=== PATIENT | male | born 2005 | race Caucasian/White ===

== ENCOUNTER 2025-02-20 23:56 | Emergency (ER) | payer MEDICAID ==
[~2025-02-20] VITALS: Ht 172.7 cm; Wt 74.1 kg
[2025-02-20 23:57] VITALS: BP 127/71; PULSE 60; O2SAT 98
[2025-02-21 00:44] LABS: MEAN PLATELET VOLUME 9.8 FL (7.4-10.4); RED CELL DISTRIBUTION WIDTH 13.2 % (11.5-14.5)
--- NOTE | 2025-02-21 01:00 | Physician Documentation ---
History of Present Illness ~ Chief Complaint: Suicidal Ideation Stated Complaint: MH Time Seen by MD: 00:20 Source: patient, EMS Mode of Arrival: EMS Exam Limitations: no limitations HPI Chief Complaint: Suicidal thoughts Caveat: None Independent Historians: None History of Present Illness: Patient is a 19-year-old man brought in by police and dropped off. Patient is having suicidal thoughts. Patient was on the phone with a friend when he was cutting his left arm. His friend called 911. Police brought him here. Patient is denying any suicidal plan. Patient denies any other associated symptoms. Review of systems: All systems were reviewed and are negative except for what is indicated in the history of present illness. Past Medical History: None Past Surgical History: None Social History: Denies tobacco use, denies alcohol use, denies drug use Medications: Reviewed as documented Nursing Notes Allergies: Reviewed as documented in Nursing Notes Medication Reconciliation Allergies: Coded Allergies: No Known Allergies (Unverified , 02/21/25) Review of Systems All Other Systems at this time: Reviewed and Negative ROS Patient denies any other acute symptoms other than above. All other systems are negative Physical Exam Vital Signs: RN Vital Signs have been reviewed: Yes, Temperature: 99.3, Source: Temporal, Heart Rate: 60, Respiratory Rate: 18, BP: 127/71, Pulse Oximetry: 98, Weight: 74.090 Oxygen Flow Rate: 0 Pulse Oximetry Reflects: adequate oxygenation Physical Exam General Appearance: No distress HEENT: Normal OP, moist oral mucosa, PERRL, EOMI Neck: supple, normal ROM, trachea midline Pulmonary: No respiratory distress, CTA, BS equal Cardiac: RRR, no murmur, rub or gallop, GI: nondistended, soft, nontender, normal bowel sounds, no guarding, no rebound Extremities: normal ROM, no swelling, non-tender, multiple superficial linear cuts or scratches to the left forearm. None of the lacerations or through the subcutaneous tissue. Skin: intact, dry, warm, no rashes must see extremity exam above Neuro: AAOx3, speech is clear, no focal motor weakness Psych: normal affect, good eye contact, no apparent hallucination, normal speech Progress Results/Orders Results/Orders Orders - ZACKARY DUMONT MD Urinalysis (02/21/25 00:20) Drug Screen, Urine (02/21/25 00:20) Ethanol (8/9/25 00:20) TSH (02/21/25 00:20) Med Rec (02/21/25 00:20) 1799.11 (02/21/25 00:20) BMP (02/21/25 00:20) Close Observation Level (02/21/25 00:20) Covid19 Binax Poc Result Entry (02/21/25 00:20) Regular Diet (02/21/25 Breakfast) Completed Orders - ZACKARY DUMONT MD Cbc/Diff (02/21/25 00:20) Vital Signs 02/20/25 23:57 Temp 99.3 Pulse 60 Resp 18 B/P (MAP) 127/71 Pulse Ox 98 O2 Flow Rate 0 Laboratory Tests Test 02/21/25 00:31 02/21/25 00:38 White Blood Count 9.2 Red Blood Count 5.20 Hemoglobin 15.8 Hematocrit 46.1 Mean Corpuscular Volume 88.8 Mean Corpuscular Hemoglobin 30.3 Mean Corpuscular Hemoglobin Concent 34.1 Red Cell Distribution Width 13.2 Platelet Count 242 Mean Platelet Volume 9.8 Neutrophils (%) (Auto) 79.2 H Lymphocytes (%) (Auto) 11.0 L Monocytes (%) (Auto) 8.9 Eosinophils (%) (Auto) 0.5 Basophils (%) (Auto) 0.4 Neutrophils # (Auto) 7.3 Lymphocytes # (Auto) 1.0 L Monocytes # (Auto) 0.8 Eosinophils # (Auto) 0.0 Basophils # (Auto) 0.0 CBC Comment Chemistry Comments Medical Decision Making Findings Differential diagnosis includes but is not limited to: Depression, anxiety, PTSD, schizoaffective disorder, substance abuse, Laboratory data independent interpretation: CBC: Unremarkable BMP: Unremarkable Toxicology: Blood alcohol 0, urine drug screen negative Serology: COVID negative Urinalysis: Unremarkable TSH: 0.9 Emergency department course/medical decision-making: Patient is brought in by police and the patient is self committing himself for evaluation. Patient will be placed on a 1799. Patient is medically cleared and stable for evaluation by [facility]. Care the patient transferred to Dr. Sierra at 6:00 a.m.. Consultation/communications: [facility] consultation pending. Disposition per [facility] Departure Time of Disposition: 01:00 Disposition: 30 STILL A PATIENT Impression: Primary Impression: Suicidal thoughts Additional Impression: Self-inflicted injury Condition: Stable Discharge Instructions: Medical Screening Exam, Suicidal Feelings: How to Help Yourself Education Educated: Patient Educated regarding: diagnosis, treatment Signature Scribe Signature: No scribe Attestation: No scribe ZACKARY DUMONT MD Feb 21, 2025 01:00
[2025-02-21 01:01] LABS: LEUKOCYTE ESTERASE ,URINE NEGATIVE (Neg); NITRITES, URINE NEGATIVE (Neg); OCCULT BLOOD,URINE NEGATIVE (Neg)
[2025-02-21 01:03] LABS: UA COLLECTION TYPE VOIDED
[2025-02-21 01:05] LABS: CREATININE 0.97 MG/DL (0.60-1.10); ETHANOL < 10 MG/DL (<10); TOTAL CARBON DIOXIDE 26.7 MMOL/L (24-32); eCRCL 119 ML/MIN; eGFR > 90 ML/MIN
[2025-02-21 01:07] LABS: MUCUS STRANDS MANY /LPF (Neg); SQUAMOUS EPITHELIAL CELL,UR FEW /LPF (FEW)
[2025-02-21 01:08] LABS: AMORPHOUS PHOSPHATES 1+
[2025-02-21 01:22] LABS: URINE AMPHETAMINE SCREEN NEGATIVE (Neg); URINE BARBITUATE SCREEN NEGATIVE (Neg); URINE BENZODIAZEPINES SCREEN NEGATIVE (Neg); URINE CANNABINOID SCREEN NEGATIVE (Neg); URINE COCAINE SCREEN NEGATIVE (Neg); URINE METHADONE SCREEN NEGATIVE (Neg); URINE OPIATE SCREEN NEGATIVE (Neg); URINE PHENCYCLIDINE SCREEN NEGATIVE (Neg)
[2025-02-21 08:05] VITALS: RESP 16; TEMP 99.3
== END 2025-02-21 09:45 | disposition home or self-care (01) ==
LOC: ER 23:57
DX: R45.851 Suicidal ideations (principal); Z20.822 Contact with and (suspected) exposure to COVID-19; X83.8XXA Intentional self-harm by other specified means, initial encounter; Y93.89 Activity, other specified; Y92.89 Other specified places as the place of occurrence of the external cause; Y99.8 Other external cause status
CPT/HCPCS: 36415; 80048; 80305; 80320; 81001; 84443; 85025; 87811; 99284; 99285